=== PATIENT | male | born 1950 | race Caucasian/White ===

== ENCOUNTER → 2016-12-19 | Outpatient (CLI) | payer MEDICARE ==
[2016-12-19 07:42] LABS: HEMOGLOBIN 15.2 gm/dl (14.0-17.5); RED BLOOD COUNT 4.86 M/UL (4.20-5.50); WHITE BLOOD COUNT 6.4 K/UL (4.5-11.0)
[2016-12-19 07:58] LABS: BUN/CREATININE RATIO 28 (0-10)
== END ==
LOC: LAB 07:07
PROVIDERS: Emergency Medicine
DX: E03.8 Other specified hypothyroidism (principal); E78.2 Mixed hyperlipidemia; E87.6 Hypokalemia; I10 Essential (primary) hypertension; I48.2 Chronic atrial fibrillation; J06.9 Acute upper respiratory infection, unspecified; J20.8 Acute bronchitis due to other specified organisms; R35.1 Nocturia; R73.09 Other abnormal glucose
CPT/HCPCS: 36415; 80053; 80061; 83704; 84443; 85027

== ENCOUNTER → 2020-09-15 | Outpatient (CLI) | payer MEDICARE, BC ==
[2020-09-15 07:46] LABS: BUN/CREATININE RATIO 25 (0-10)
[2020-09-15 07:55] LABS: HEMOGLOBIN 15.7 gm/dl (14.0-17.5); RED BLOOD COUNT 4.98 M/UL (4.20-5.50); WHITE BLOOD COUNT 5.9 K/UL (4.5-11.0)
[2020-09-17 14:08] LABS: CHOLESTEROL, TOTAL 175 mg/dL (100-199); HDL SIZE 8.4 nm (>=9.2); HDL-C 41 mg/dL (>39); HDL-P (TOTAL) 30.5 umol/L (>=30.5); LARGE HDL-P 1.8 umol/L (>=4.8); LARGE VLDL-P 6.1 nmol/L (<=2.7); LDL SIZE 20.6 nm (>20.5); LDL SIZE 20.6 nm (>=20.8); LDL-C 114 mg/dL (0-99); LDL-P 1388 nmol/L (<1000); LP-IR SCORE 82 (<=45); SMALL LDL-P 625 nmol/L (<=527); TRIGLYCERIDES 112 mg/dL (0-149); VLDL SIZE 53.4 nm (<=46.6)
== END ==
LOC: LAB 07:02
PROVIDERS: Emergency Medicine
DX: I10 Essential (primary) hypertension (principal); E78.2 Mixed hyperlipidemia; E03.8 Other specified hypothyroidism; E87.6 Hypokalemia; R73.09 Other abnormal glucose
CPT/HCPCS: 36415; 80053; 80061; 83704; 84443; 84550; 85025

== ENCOUNTER → 2021-02-27 | Outpatient (CLI) | payer MEDICARE, BC ==
[2021-02-27 08:13] LABS: BUN/CREATININE RATIO 21 (0-10)
== END ==
LOC: LAB 07:15
PROVIDERS: Emergency Medicine
DX: Z12.5 Encounter for screening for malignant neoplasm of prostate (principal); E78.2 Mixed hyperlipidemia; E03.9 Hypothyroidism, unspecified; E87.6 Hypokalemia; I10 Essential (primary) hypertension
CPT/HCPCS: 36415; 80048; 84443; G0103

== ENCOUNTER → 2021-07-12 | Outpatient (CLI) | payer MEDICARE, BC ==
[2021-07-13 07:11] LABS: CALCIUM, SERUM 9.3 mg/dL (8.6-10.2); CREATININE, SERUM 0.82 mg/dL (0.76-1.27); POTASSIUM, SERUM 3.5 mmol/L (3.5-5.2)
== END ==
LOC: LAB 07:09
PROVIDERS: Physician Assistant
DX: I48.91 Unspecified atrial fibrillation (principal); E78.5 Hyperlipidemia, unspecified; I10 Essential (primary) hypertension; I47.9 Paroxysmal tachycardia, unspecified
CPT/HCPCS: 36415; 80048

== ENCOUNTER → 2021-09-04 | Outpatient (CLI) | payer MEDICARE, BC ==
[2021-09-04 08:30] LABS: BUN/CREATININE RATIO 21 (0-10)
[2021-09-04 09:09] LABS: RED BLOOD COUNT 4.99 M/UL (4.20-5.50); WHITE BLOOD COUNT 6.4 K/UL (4.5-11.0)
[2021-09-04 09:10] LABS: HEMOGLOBIN 15.6 gm/dl (14.0-17.5)
[2021-09-06 12:16] LABS: CHOLESTEROL, TOTAL 174 mg/dL (100-199); HDL SIZE 8.4 nm (>=9.2); HDL-C 37 mg/dL (>39); HDL-P (TOTAL) 27.3 umol/L (>=30.5); LARGE HDL-P 1.9 umol/L (>=4.8); LARGE VLDL-P 8.2 nmol/L (<=2.7); LDL SIZE 20.4 nm (>20.5); LDL SIZE 20.4 nm (>=20.8); LDL-C 114 mg/dL (0-99); LDL-P 1405 nmol/L (<1000); LP-IR SCORE 89 (<=45); SMALL LDL-P 762 nmol/L (<=527); TRIGLYCERIDES 129 mg/dL (0-149); VLDL SIZE 55.7 nm (<=46.6)
== END ==
LOC: LAB 07:36
PROVIDERS: Emergency Medicine
DX: I10 Essential (primary) hypertension (principal); E78.2 Mixed hyperlipidemia; I48.20 Chronic atrial fibrillation, unspecified; E03.8 Other specified hypothyroidism; R73.09 Other abnormal glucose
CPT/HCPCS: 36415; 80053; 80061; 83704; 84443; 84550; 85025

== ENCOUNTER → 2022-02-26 | Outpatient (CLI) | payer MEDICARE, BC ==
[2022-02-26 07:03] LABS: HEMOGLOBIN 15.5 gm/dl (14.0-17.5); RED BLOOD COUNT 4.83 M/UL (4.20-5.50); WHITE BLOOD COUNT 6.7 K/UL (4.5-11.0)
[2022-02-26 07:18] LABS: BUN/CREATININE RATIO 26 (0-10)
== END ==
LOC: LAB 06:30
PROVIDERS: Nurse Practitioner
DX: I10 Essential (primary) hypertension (principal); E78.2 Mixed hyperlipidemia; E03.8 Other specified hypothyroidism
CPT/HCPCS: 36415; 80053; 80061; 83540; 83550; 83704; 84550; 85025